=== PATIENT | male | born 1980 | race Hispanic/Latino ===

== ENCOUNTER 2018-07-08 15:30 | Outpatient (CLI) | payer OTHER ==
[2018-07-08 16:16] LABS: Hemoglobin 15.8 g/dL (14.0-18.0); Mean Corpuscular HGB CONC 34.2 g/dL (32.0-36.0); Mean Corpuscular Hemoglobin 29.9 pg (27.0-31.0); Mean Corpuscular Volume 87.5 fL (78.0-98.0); Mean Platelet Volume 7.4 fL (7.4-10.4); Platelet Count 209 thou/uL (130-400); RBC Distribution Width 11.8 % (11.5-14.5); Red Blood Cell (RBC) Count 5.28 mill/uL (4.70-6.10)
[2018-07-08 16:32] LABS: Anion Gap 10 mmol/L (10-20); BUN (Urea Nitrogen) 10 mg/dL (8.9-20.6); Calc. Creatinine Clearance 0 mL/min (70-130); Calcium 9.2 mg/dL (7.8-10.44); Carbon Dioxide 27 mmol/L (22-29); Chloride 106 mmol/L (98-107); Estimated GFR-MDRD Greater than 90; Glucose 91 mg/dL (70-105); Sodium 139 mmol/L (136-145)
== END 2018-07-08 15:31 | disposition home or self-care (01) ==
LOC: LABBT 15:30
PROVIDERS: ATTEND Urology
DX: Z01.812 Encounter for preprocedural laboratory examination (principal); N46.01 Organic azoospermia
CPT/HCPCS: 80048; 85027

== ENCOUNTER 2018-07-16 07:14 | Day surgery (SDC) | payer OTHER ==
[2018-07-08 15:44] VITALS: BMI 26.6
[2018-07-16] MEDS ORDERED: CEFAZOLIN 2 GM/50 ML BAG ONE (08:25)
[2018-07-16] MEDS ORDERED: Fentanyl 100 MCG/2 ML VIAL ONE ×2 (11:43→13:20)
[2018-07-16] MEDS ORDERED: Midazolam HCl 2 mg/2 ml Vial ONE ×2 (11:43→11:49)
[2018-07-16] MEDS ORDERED: B & O ONE (12:37)
[2018-07-16] MEDS ORDERED: Dexamethasone 20 MG/5 ML VIAL ONE (13:51)
[2018-07-16] MEDS ORDERED: Ondansetron PF 4 MG/2 ML Vial ONE (13:51)
[2018-07-16] MEDS ORDERED: Phenazopyridine HCl 97.5 MG TABLET ONE (13:51)
[2018-07-16] MEDS ORDERED: Metoclopramide HCl 10 MG/2 ML VIAL ONE (13:51)
[2018-07-16] MEDS ORDERED: Oxybutynin 5 MG TAB ONE (13:51)
[2018-07-16] MEDS ORDERED: diphenhydrAMINE 50 MG/ML VIAL ONE (13:51)
[2018-07-16] MEDS ORDERED: HYDROcodone/Acetaminophen 5/325 mg Tablet ONE (14:10)
[2018-07-16] MEDS ORDERED: cefTRIAXone\\ROCEPHIN 1 GM VIAL ONE ×2 (15:30→15:51)
[2018-07-16] MEDS ORDERED: Sodium Chloride 0.9% 0 ML ONE (15:30)
[2018-07-16] MEDS ORDERED: cefTRIAXone\\ROCEPHIN 1 GM in Sodium Chloride 0.9% 100 ML IVPB SCH (15:45)
[2018-07-16] MEDS ORDERED: Sodium Chloride 0.9% 100 ML ONE (15:51)
--- NOTE | 2018-07-16 22:41 | OP ---
DATE OF PROCEDURE: 07/16/2018 PREOPERATIVE DIAGNOSIS: Infertility. POSTOPERATIVE DIAGNOSIS: Infertility. PROCEDURE PERFORMED: Transrectal ultrasound with injection of methylene blue into the seminal vesicles as well as transurethral resection of ejaculatory ducts. ANESTHESIA: General with laryngeal mask airway. SPECIMENS: Ejaculatory ducts. COMPLICATIONS: None. DRAIN REMAININ-Togolese two way. INDICATION FOR PROCEDURE: The patient is a 37-year-old male who is followed in the office and noted to have no semen on semen analysis. However, it was low volume and he had no prior history approximately 5 to 8 years ago, having children. An ultrasound revealed distended and dilated seminal vesicles and so he was set up for ejaculatory duct resection. DESCRIPTION OF PROCEDURE: The patient was brought into the room by Anesthesia, laid on the table in supine position. After receiving sedation, he was placed on the side in a position, and the transrectal ultrasound was performed, identifying both of the distended seminal vesicles was then filled with 10 mL of methylene blue of each, some was noted to have gone beyond the seminal vesicle into the bladder , but otherwise the majority of which was in the seminal vesicles itself. Then, the needle was removed. Ultrasound probe removed. He was positioned in supine and then had a laryngeal mask airway placed. Then, he was positioned in the lithotomy and prepped and draped in sterile fashion. Using a 21-Togolese cystoscope and a 30- degree lens, urethra was traversed, and the bladder was inspected. The ureteral orifices were identified in normal position with clear effusions. Then , attention was turned back to the prostatic urethra where at the veru, there was a large opening for the ejaculatory duct, but it was not noted to be blue until this was resected and then the vault that was more on the patient's left was noted to be blue and open and patent. I resected more on the right. I still did not find a blue component, but I did feel like it was opened up in one area without blue noted, but seemingly open and I did not want to go any deeper on this side and decided it not to be safe and be concerned about going to far posterior. So at this point , the chips from the ejaculatory ducts at the veru were removed and sent for specimen. Hemostasis was achieved with minimal coagulation only on the surrounding areas where vessels were not at the area with opening of the duct and with hemostasis controlled. Then, the scope was removed and an 18-Tog[place]ese Childress catheter was placed to gravity. The patient was then awakened and transferred to PACU in stable condition. Job ID: [id number]
== END 2018-07-16 16:55 | disposition home or self-care (01) ==
LOC: SDC 07:14
PROVIDERS: ATTEND Urology
PROC: 0VBQ8ZZ Excision of Bilateral Vas Deferens, Via Natural or Artificial Opening Endoscopic (ICD-10-PCS; principal; 2018-07-16)
DX: N49.8 Inflammatory disorders of other specified male genital organs (principal); N46.01 Organic azoospermia; Z87.891 Personal history of nicotine dependence; Z79.51 Long term (current) use of inhaled steroids
CPT/HCPCS: 88304; 96374; J0696; J1100; J1200; J2250; J2405; J2765; J3010; J7050; Q9968

== ENCOUNTER 2021-02-01 11:30 | Day surgery (SDC) | payer OTHER ==
[2021-01-31 10:49] VITALS: BMI 29.0
[2021-02-01] MEDS ORDERED: AFRIN NASAL MIST 15 ML BOT ONE ×2 (11:39→11:46)
[2021-02-01] MEDS ORDERED: Lidocaine 1% w/Epinephrine 1:100K 20 ML VIAL ONE (11:46)
[2021-02-01] MEDS ORDERED: Fentanyl 100 MCG/2 ML VIAL ONE ×2 (12:36→15:48)
[2021-02-01] MEDS ORDERED: Rocuronium Bromide 10 MG/ML (10ML VIAL) ONE (13:26)
[2021-02-01] MEDS ORDERED: Glycopyrrolate 0.2 MG/ML 5 ML SYRINGE ONE (13:26)
[2021-02-01] MEDS ORDERED: Ondansetron PF 4 MG/2 ML Vial ONE (13:26)
[2021-02-01] MEDS ORDERED: ePHEDrine 50 MG/ML VIAL ONE (13:26)
[2021-02-01] MEDS ORDERED: Lidocaine 1% PF 5 ML VIAL ONE (13:26)
[2021-02-01] MEDS ORDERED: PROPOFOL 200 MG/20 ML VIAL ONE (13:26)
[2021-02-01] MEDS ORDERED: Hydrocodone-Acetamin 15 ML UDCUP ONE (17:29)
== END 2021-02-01 18:25 | disposition home or self-care (01) ==
LOC: SDC 11:30
PROVIDERS: ATTEND Student in an Organized Health Care Education/Training Program
PROC: 09QK8ZZ Repair Nasal Mucosa and Soft Tissue, Via Natural or Artificial Opening Endoscopic (ICD-10-PCS; principal; 2021-02-01)
PROC: 09TL0ZZ Resection of Nasal Turbinate, Open Approach (ICD-10-PCS; principal; 2021-02-01)
PROC: 09SM0ZZ Reposition Nasal Septum, Open Approach (ICD-10-PCS; principal; 2021-02-01)
DX: J34.2 Deviated nasal septum (principal); J34.3 Hypertrophy of nasal turbinates; J34.89 Other specified disorders of nose and nasal sinuses; M26.609 Unspecified temporomandibular joint disorder, unspecified side; Z87.891 Personal history of nicotine dependence; Z90.49 Acquired absence of other specified parts of digestive tract
CPT/HCPCS: C1889; J2405; J2704; J3010; J3490